=== PATIENT | female | born 1940 | race Caucasian/White ===

== ENCOUNTER 2020-04-08 06:06 | Day surgery (SDC) | payer BC, OTHER | END 2020-04-09 16:56 | disposition short-term general hospital (02) | LOC: OR 06:06 → TBA 06:07 → 4S 11:13 | DX: M25.511 Pain in right shoulder (principal); M19.011 Primary osteoarthritis, right shoulder; M75.21 Bicipital tendinitis, right shoulder; I10 Essential (primary) hypertension; E78.00 Pure hypercholesterolemia, unspecified; G47.30 Sleep apnea, unspecified; F41.9 Anxiety disorder, unspecified; K21.9 Gastro-esophageal reflux disease without esophagitis; Z98.890 Other specified postprocedural states; Z79.899 Other long term (current) drug therapy; Z98.42 Cataract extraction status, left eye; Z96.652 Presence of left artificial knee joint; Z90.711 Acquired absence of uterus with remaining cervical stump; Z98.0 Intestinal bypass and anastomosis status; Z98.41 Cataract extraction status, right eye; Z86.010 Personal history of colon polyps; Z11.59 Encounter for screening for other viral diseases ==

== ENCOUNTER 2020-04-10 16:11 | Emergency (ER) | payer BC, OTHER ==
[~2020-04-10] VITALS: Ht 152.4 cm; Wt 53.5 kg
[~2020-04-10 16:11] MED LIST: ASA81BEC PO; BENICAR20 MG PO; CLOBETASOL 0.0560 GM TOP; COQ-10100 MG PO; FISH OIL 1,0001 EAC9 PO; LORAZEPAM 0.50.5 MG PO; MAGNESIUM400 M1 PO; MELATONIN5 MG PO; MELOXICAM15 MG PO; NORVASC5 M1 PO; PROBIOTIC1 EAC7 PO; PROTONIX 20 MG20 MG PO; VITAMIN D350 MC1 PO; ZYRTEC10 M5 PO
[2020-04-10 17:39] VITALS: BP 136/71
== END 2020-04-10 17:42 | disposition home or self-care (01) ==
LOC: ER 16:11
DX: M25.511 Pain in right shoulder (principal); F41.9 Anxiety disorder, unspecified; I10 Essential (primary) hypertension; K21.9 Gastro-esophageal reflux disease without esophagitis; E78.5 Hyperlipidemia, unspecified; Z79.899 Other long term (current) drug therapy; Z79.82 Long term (current) use of aspirin; Z88.1 Allergy status to other antibiotic agents; Z88.8 Allergy status to other drugs, medicaments and biological substances; Z88.0 Allergy status to penicillin; Z98.890 Other specified postprocedural states; W18.39XA Other fall on same level, initial encounter; Y93.89 Activity, other specified; Y92.89 Other specified places as the place of occurrence of the external cause; Y99.8 Other external cause status